=== PATIENT | male | born 1970 | race Caucasian/White ===

== ENCOUNTER 2017-12-07 21:08 | Inpatient (IN) | payer MEDICAID ==
[~2017-12-07] VITALS: Ht 175.3 cm; Wt 86.2 kg
--- NOTE | 2017-12-07 21:15 | NUR ---
BBRA FROM HOME; WEAKNESS, SLURRED SPEECH X 30 MIN. PT AO. RR EVEN AND UNLABORED. NO SOB NOTED. NO NVD AT THIS TIME. PT GOWNED AND PLACED ON MONITOR. WAITING FOR DR. KOENIG. 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
--- NOTE | 2017-12-07 21:19 | NUR ---
DR. ARMSTRONG AND JESSICA SWANN AT BEDSIDE FOR EVAL.
--- NOTE | 2017-12-07 21:21 | NUR ---
CODE STROKE ACTIVATED.
--- NOTE | 2017-12-07 21:24 | NUR ---
PT TO CT.
[2017-12-07] MEDS ORDERED: IOHEXOL-350 100 ML VIAL IV ONE (21:29)
[2017-12-07 21:36] LABS: BASOPHILS % (AUTO) 0.3 % (0.0-2.0); EOSINOPHILS % (AUTO) 1.6 % (0.0-6.0); HEMATOCRIT 45 % (39-51); HEMOGLOBIN 16.4 g/dL (13.5-17.5); LYMPHOCYTES # (AUTO) 3.7 /CMM (0.8-4.8); LYMPHOCYTES % (AUTO) 30.7 % (20.0-44.0); MEAN CORPUSCULAR HGB CONC 37 g/dl (31.0-36.0); MEAN CORPUSCULAR VOLUME 85 fL (80-96); MONOCYTES # (AUTO) 0.8 /CMM (0.1-1.30); MONOCYTES % (AUTO) 6.5 % (2.0-12.0); NEUTROPHILS # (AUTO) 7.3 /CMM (1.8-8.9); NEUTROPHILS % (AUTO) 60.9 % (43.0-81.0); PLATELET COUNT (AUTO) 292 /CMM (150-450); RDW COEFFICIENT OF VARIATION 12.4 (11.5-15.0); RED BLOOD CELL COUNT(AUTO) 5.28 MIL/uL (4.5-6.0)
[2017-12-07 21:38] LABS: CARBON DIOXIDE 23 mmol/L (21-32); CHLORIDE 103 mmol/L (98-107); CREATININE 1.3 mg/dL (0.6-1.3); GLUCOSE 130 mg/dL (74-106); POTASSIUM 3.1 mmol/L (3.5-5.1); SODIUM SERUM 140 mmol/L (136-145); UREA NITROGEN, BLOOD 19 mg/dL (7-18)
--- NOTE | 2017-12-07 21:38 | NUR ---
CALLED TELESTROKE NUMBER AND SPOKE TO MAC. WAS TOLD THAT DR WINCHESTER WOULD CALL BACK.
--- NOTE | 2017-12-07 21:38 | NUR ---
PT RETURNED FROM CT.
--- NOTE | 2017-12-07 21:39 | NUR ---
PT PASSED PO CHALLENGE. JESSICA BURKS MADE AWARE
[2017-12-07] MEDS ORDERED: MECLIZINE HCL 25 MG TABLET ONE (21:40)
--- NOTE | 2017-12-07 21:40 | NUR ---
DR. WALSH SPEAKING TO DR. HERNANDEZ REGARDING POC.
[2017-12-07 21:43] LABS: ALANINE AMINOTRANSFERASE 27 U/L (12-78); ALBUMIN 4.6 g/dL (3.4-5.0); ALKALINE PHOSPHATASE 76 U/L (46-116); ASPARTATE AMINOTRANSFERASE 15 U/L (15-37); BILIRUBIN,DIRECT 0.1 mg/dL (0.0-0.2); TOTAL PROTEIN, SERUM 7.9 g/dL (6.4-8.2)
[2017-12-07 21:45] LABS: TROPONIN I < 0.017 ng/mL (0.00-0.056)
[2017-12-07 21:47] LABS: INR 1.01 (0.85-1.15)
--- NOTE | 2017-12-07 21:49 | NUR ---
DR. WINCHESTER ON TELE STROKE MONITOR SPEAKING TO PT, JESSICA GARCIA AT BEDSIDE. FAMILY AT BEDSIDE
--- NOTE | 2017-12-07 21:50 | NUR ---
DR. ARMSTRONG SPEAKING TO DR. WINCHESTER VIA TELESTROKE MONITOR.
--- NOTE | 2017-12-07 21:55 | NUR ---
PT NOTED WITH SPEECH IMPROVEMENT. PT AMBULATORY. PT AOX3
[2017-12-07] MEDS ORDERED: MECLIZINE HCL 12.5 MG TABLET PO ONE (22:00)
[2017-12-07] MEDS ORDERED: LORAZEPAM INJ 2 MG/ML VIAL ONE (22:08)
[2017-12-07] MEDS ORDERED: ONDANSETRON HCL/PF 4 MG/2 ML VIAL ONE (22:11)
[2017-12-07] MEDS ORDERED: ONDANSETRON HCL/PF 4 MG/2 ML VIAL IV ONE (22:30)
[2017-12-07] MEDS ORDERED: LORAZEPAM INJ 2 MG/ML VIAL IV ONE (22:30)
[2017-12-07 22:40] LABS: CHOLESTEROL 170 mg/dL (<200); HDL CHOLESTEROL 58 mg/dL (40-60); LDL 109 mg/dL (0-99); TRIGLYCERIDES 138 mg/dL (30-150)
--- NOTE | 2017-12-07 23:51 | NUR ---
PT PROVIDED WITH WATER AND PUDDING. OKAY TO GIVE PER VOIP NETWORK TECHNICIAN DEGRASSI
--- NOTE | 2017-12-08 00:29 | NUR ---
FATHER AT BEDSIDE
--- NOTE | 2017-12-08 02:16 | NUR ---
Patient is resting comfortably in bed with eyes closed. Easily aroused. VSS
--- NOTE | 2017-12-08 02:45 | NUR ---
CALLED [facility] TRIP [id number] [place] 8-8:30AM.
[2017-12-08] MEDS ORDERED: ATOR40TA PO (03:12)
[2017-12-08] MEDS ORDERED: HYDR25TA4 PO (03:12)
--- NOTE | 2017-12-08 03:35 | NUR ---
PT ASSIGNED TO 324-1
--- NOTE | 2017-12-08 03:47 | NUR ---
REPORT GIVEN TO CLEMENT GAONA.
[2017-12-08 04:00] VITALS: BP 116/77
--- NOTE | 2017-12-08 04:00 | NUR ---
TELE CRITICAL POWER TECHNICIAN INITIAL NOTES ADMIT PT FROM ER VIA [facility] ACCOMPANIED BY ER NURSE AND HIS FATHER. DX OF CVA. PT AMBULATE ON STEADY GAIT, ONLY FEELING DIZZY. NO SIGN OF ANY SOB. ORIENTED X3, SPEECH CLEAR .RESPIRATION EVEN AND NON-LABORED. SKIN WARM TO TOUCH. PLACED TELE MONITOR SINUS RHYTHM HEART RATE 66 PER MONITOR. ORIENTED WHERE HE AT AND HOW TO USED THE CALL LIGHT SYSTEM. KEPT HIM WARM AND COMFORTABLE AT ALL TIMES. PLACE CALL LIGHT AT REACH. WILL CONTINUE TO MONITOR.
--- NOTE | 2017-12-08 04:08 | NUR ---
PT TRANSFERED PER ACLS PROTOCOL.
[2017-12-08 04:15] VITALS: BP 116/77
[2017-12-08] MEDS ORDERED: ACETAMINOPHEN 325 MG TABLET PO PRN (05:00)
[2017-12-08] MEDS ORDERED: ONDANSETRON HCL/PF 4 MG/2 ML VIAL IV PRN (05:00)
[2017-12-08] MEDS ORDERED: ZOLPIDEM TARTRATE 5 MG TABLET PO PRN (05:00)
[2017-12-08] MEDS ORDERED: LORAZEPAM 1 MG TABLET PO PRN (05:00)
[2017-12-08] MEDS: MECLIZINE HCL 12.5 MG TABLET PO SCH ×2 (05:02→11:45)
--- NOTE | 2017-12-08 05:05 | NUR ---
TELE BUSINESS APPLICATIONS DEVELOPER NOTES MECLIZINE 25MG PO AND ATIVAN 1MG PO GIVEN PER PT REQUESTED BECAUSE HE STARTED FEELING DIZZY AND ANXIETY. KEPT HIM SAFE AT ALL TIMES. FATHER REMAINS AT THE BEDSIDE. TELE SINUS RHYTHM.
[2017-12-08 06:21] LABS: BASOPHILS % (AUTO) 0.4 % (0.0-2.0); EOSINOPHILS % (AUTO) 1.3 % (0.0-6.0); HEMATOCRIT 42 % (39-51); HEMOGLOBIN 14.5 g/dL (13.5-17.5); LYMPHOCYTES # (AUTO) 2.5 /CMM (0.8-4.8); LYMPHOCYTES % (AUTO) 23.6 % (20.0-44.0); MEAN CORPUSCULAR HGB CONC 34 g/dl (31.0-36.0); MEAN CORPUSCULAR VOLUME 87 fL (80-96); MONOCYTES # (AUTO) 0.7 /CMM (0.1-1.30); MONOCYTES % (AUTO) 6.5 % (2.0-12.0); NEUTROPHILS # (AUTO) 7.1 /CMM (1.8-8.9); NEUTROPHILS % (AUTO) 68.2 % (43.0-81.0); PLATELET COUNT (AUTO) 284 /CMM (150-450); RDW COEFFICIENT OF VARIATION 13.2 (11.5-15.0); RED BLOOD CELL COUNT(AUTO) 4.85 MIL/uL (4.5-6.0); WHITE BLOOD COUNT (AUTO) 10.4 K/uL (4.3-11.0)
[2017-12-08 06:28] LABS: INR 1.02 (0.87-1.13)
--- NOTE | 2017-12-08 06:40 | NUR ---
TEXTED SERAFIN CASANOVA FOR MRI APPROVAL.
[2017-12-08 06:45] LABS: THYROID STIMULATING HORMONE 1.85 uIU/mL (0.358-3.74)
[2017-12-08 06:50] LABS: CALCIUM, SERUM 9.1 mg/dL (8.5-10.1); CREATININE 1.1 mg/dL (0.6-1.3); POTASSIUM 3.6 mmol/L (3.5-5.1)
--- NOTE | 2017-12-08 07:40 | NUR ---
TELE FINISH MIXER CLOSING NOTES PT SLEEPING COMFORTABLY IN BED AFTER PRN MEDS GIVEN. NO SIGNS OF ANY ACUTE DISTRESS NOTED. TELE SR PER MONITOR. KEPT HIM SAFE AND WARM AND COMFORTABLE AT ALL TIMES. NPO AT THIS TIME FOR MRI WITH AND WITHOUT CONTRAST. ENDORSE TO AM NURSE FOR CONTINUITY OF CARE,. HIS FATHER STILL AT THE BEDSIDE.
--- NOTE | 2017-12-08 07:45 | NUR ---
RN OPENING NOTES RECEIVED PT. IN BED NPO, A&OX4. PT.'S FATHER IS AT BEDSIDE. BREATHING UNLABORED, AND EVEN ON ROOM AIR. NO S/S OF ACUTE DISTRESS. IV ACCESS ON RIGHT ANTECUBITAL. BED IS IN LOWEST, AND LOCKED POSITION. 2 SIDE RAILS UP. INSTRUCTED PT. TO USE CALL LIGHT FOR ASSISTANCE. ALL NEEDS MET. WILL CONTINUE TO ASSESS AND MONITOR. PT. IS AWAITING MRI OF THE BRAIN WITH AND WITHOUT CONTRAST.
[2017-12-08 08:00] VITALS: BP 126/72
--- NOTE | 2017-12-08 08:05 | NUR ---
TELE MONITORING DISCONTINUED
[2017-12-08] MEDS ORDERED: DEXTROSE 50%-WATER 50 ML DISP.SYRIN IV PRN (09:00)
[2017-12-08] MEDS ORDERED: INSULIN REGULAR, HUMAN 100 UNIT/ML 3 ML VIAL SQ PRN (09:00)
[2017-12-08] MEDS ORDERED: HYDROCHLOROTHIAZIDE 25 MG TABLET PO SCH (09:00)
[2017-12-08] MEDS ORDERED: ASPIRIN EC 325 MG TABLET.DR PO SCH (09:00)
[2017-12-08] MEDS ORDERED: BLOOD SUGAR DIAGNOSTIC 1 EACH STRIP IN SCH (09:00)
--- NOTE | 2017-12-08 10:41 | NUR ---
RN NOTES PT. LEFT ROOM FOR MRI OF THE BRAIN.
--- NOTE | 2017-12-08 11:25 | NUR ---
RN NOTES PT. RETURNED TO ROOM FROM MRI. PT. WAS ENCOURAGED TO DRINK FLUIDS, AND WAS OFFERED JUICE AND CRACKERS.
[2017-12-08 11:42] VITALS: BP 126/72
[2017-12-08] MEDS ORDERED: GADODIAMIDE 2.5 MMOL/5 ML VIAL ONE (12:41)
--- NOTE | 2017-12-08 15:15 | NUR ---
Patient lives locally with family in an apartment that has an elevator access through the garage. He is ambulatory and independent with adl's. Has good family support. No dc planning needs identified at this time. Addendum: 12/08/17 at 2005 by FARHAT BARRAZA RN Amended: Links added.
[2017-12-08 15:56] VITALS: BP 118/75
--- NOTE | 2017-12-08 16:04 | NUR ---
SUPERVISOR VEGETABLE FARMING NOTE DISCHARGED PT. IN MEDICALLY STABLE CONDITION. PT. LEFT WITH HIS BY PRIVATE CAR. DISCHARGE INSTRUCTIONS, AND EDUCATION WAS GIVEN, AND PT. VERBALIZED UNDERSTANDING. PT. SIGNED DISCHARGE PAPERS. BELONGINGS LIST WAS CHECKED AND SIGNED. IV, AND ID BAND WAS REMOVED WITHOUT COMPLICATIONS. EDUCATIONS WAS GIVEN ON VERTIGO AND STROKE PACKET. ALL QUESTIONS WERE ANSWERED. PRESCRIPTION PAPER WAS GIVEN WITH EDUCATION. PT. LEFT WITH DISCHARGE PACKET.
[2017-12-08] MEDS ORDERED: ATORVASTATIN 10 MG TABLET PO SCH (22:00)
== END 2017-12-08 18:49 | disposition home or self-care (01) | DRG 111 ==
LOC: ER 21:10 → TELE 12-08 03:34 → MED 12-08 08:03
PROVIDERS: ADMIT Internal Medicine; ATTEND Internal Medicine
DX: H81.399 Other peripheral vertigo, unspecified ear (principal); I10 Essential (primary) hypertension; R47.1 Dysarthria and anarthria; R73.03 Prediabetes
CPT/HCPCS: 36415; 70450-TC; 70496-TC; 70498-TC; 70553-TC; 71045-TC; 80048-TC; 80061-TC; 80076-TC; 82962-TC; 84443-TC; 84484-TC; 85025-TC; 85730-TC; 87081-TC; 92521; 93307-TC; A4606; J1815; J2060; J2405; J8597; Q9967; Z7610

== ENCOUNTER 2020-09-29 15:56 | Emergency (ER) | payer MEDICAID ==
[~2020-09-29] VITALS: Ht 175.3 cm; Wt 90.7 kg
[~2020-09-29 15:56] MED LIST: HYDR25TA4 PO
--- NOTE | 2020-09-29 16:20 | NUR ---
Patient came in to the er c/o RUQ abd stabbing pain since last night, 10/10 pain scale, s/o liver biopsy monday. On room air, breathing evenly and unlabored. Connected to the monitor and pulse ox. kept comfortable, will continue to monitor accordingly.
[2020-09-29] MEDS ORDERED: ONDANSETRON HCL/PF 4 MG/2 ML VIAL ONE ×2 (16:36→21:19)
[2020-09-29] MEDS ORDERED: MORPHINE SULFATE INJ 4 MG/ML DISP.SYRIN ONE ×2 (16:36→21:19)
[2020-09-29 16:57] LABS: BASOPHILS % (AUTO) 0.4 % (0.0-2.0); EOSINOPHILS % (AUTO) 0.7 % (0.0-6.0); HEMATOCRIT 50 % (39-51); LYMPHOCYTES # (AUTO) 3.1 /CMM (0.8-4.8); LYMPHOCYTES % (AUTO) 29.7 % (20.0-44.0); MEAN CORPUSCULAR HGB CONC 34 g/dl (31.0-36.0); MEAN CORPUSCULAR VOLUME 90 fL (80-96); MONOCYTES # (AUTO) 0.8 /CMM (0.1-1.30); MONOCYTES % (AUTO) 7.8 % (2.0-12.0); NEUTROPHILS # (AUTO) 6.4 /CMM (1.8-8.9); NEUTROPHILS % (AUTO) 61.4 % (43.0-81.0); PLATELET COUNT (AUTO) 289 /CMM (150-450); RED BLOOD CELL COUNT(AUTO) 5.54 MIL/uL (4.5-6.0); WHITE BLOOD COUNT (AUTO) 10.5 K/uL (4.3-11.0)
[2020-09-29] MEDS ORDERED: ONDANSETRON HCL/PF 4 MG/2 ML VIAL IVP ONE ×2 (17:00→21:30)
[2020-09-29] MEDS ORDERED: MORPHINE SULFATE INJ 2 MG/ML DISP.SYRIN IV ONE ×2 (17:00→21:30)
[2020-09-29] MEDS ORDERED: IV NS 0.9% 250 ML IV ONE (17:02)
[2020-09-29] MEDS ORDERED: IOHEXOL-300 100 ML VIAL IV ONE (17:02)
[2020-09-29 17:07] LABS: CALCIUM, SERUM 9.8 mg/dL (8.5-10.1); CREATININE 1.1 mg/dL (0.6-1.3); POTASSIUM 3.7 mmol/L (3.5-5.1)
[2020-09-29 17:12] LABS: BILIRUBIN,TOTAL 1.6 mg/dL (0.2-1.0)
[2020-09-29 17:13] LABS: ALBUMIN 4.4 g/dL (3.4-5.0); BILIRUBIN,DIRECT 0.2 mg/dL (0.0-0.2); TOTAL PROTEIN, SERUM 7.9 g/dL (6.4-8.2)
--- NOTE | 2020-09-29 17:20 | NUR ---
Pain has improved, now a 6/[address] Awad made aware.
[2020-09-29] MEDS ORDERED: HYDROMORPHONE 1 MG/1 ML DISP.SYRIN ONE (17:23)
[2020-09-29] MEDS ORDERED: HYDROMORPHONE 1 MG/1 ML DISP.SYRIN IV ONE (17:30)
--- NOTE | 2020-09-29 17:30 | NUR ---
PATIENT TAKEN TO CT.
--- NOTE | 2020-09-29 17:41 | NUR ---
PATIENT CAME BACK FROM CT. TOLERATED PROCEDURE.
[2020-09-29] MEDS ORDERED: PANT40TA49 PO (19:03)
[2020-09-29] MEDS ORDERED: FERR325T24 PO (19:03)
[2020-09-29] MEDS ORDERED: ATOR10TA PO (19:03)
[2020-09-29] MEDS ORDERED: MESA800T9 PO (19:03)
[2020-09-29] MEDS ORDERED: CHOL100062 PO (19:03)
[2020-09-29] MEDS ORDERED: CYAN1TAB17 PO (19:03)
[2020-09-29] MEDS ORDERED: VIT1CAPS44 PO (19:03)
[2020-09-29] MEDS ORDERED: LISI20TA30 PO (19:03)
[2020-09-29] MEDS ORDERED: PHYT100T PO (19:04)
--- NOTE | 2020-09-29 19:05 | NUR ---
REC'D REPORT FROM ZABRINA
--- NOTE | 2020-09-29 19:15 | NUR ---
XRAY AT BEDSIDE
--- NOTE | 2020-09-29 19:15 | NUR ---
ENDORSED TO [facility] FOR DELIO.
--- NOTE | 2020-09-29 19:30 | NUR ---
DR KESSLER SPEAKING WITH DR MANCIA
--- NOTE | 2020-09-29 19:55 | NUR ---
GAVE MOVESHEET TO ADMITTING FOR REGAL AUTH
--- NOTE | 2020-09-29 20:25 | NUR ---
SPOKE TO CHER RIVERA. PT IS CAPITATED TO [facility].
--- NOTE | 2020-09-29 20:25 | NUR ---
COVID SWAB SENT
[2020-09-29] MEDS ORDERED: IV NS 0.9% 1,000 ML BAG IV ONE (20:30)
--- NOTE | 2020-09-29 20:32 | NUR ---
DR. MANCIA SPEAKING WITH VIRGIE CHISHOLM MD
--- NOTE | 2020-09-29 20:32 | NUR ---
VERBAL ORDER FOR 1L NS NOTED AND CARRIED OUT
--- NOTE | 2020-09-30 00:09 | NUR ---
PT ACCEPTED AT [facility] ACCEPTING BALA BARNES PT WILL GO TO ROOM 309-A PHONE # FOR REPORT [facility] ETA 45 MIN.
--- NOTE | 2020-09-30 00:19 | NUR ---
AMBULANCE ETA 45MIN
--- NOTE | 2020-09-30 00:19 | NUR ---
GAVE REPORT TO CRISPIN STYLES AT [facility]
[2020-09-30] MEDS ORDERED: MORPHINE SULFATE INJ 4 MG/ML DISP.SYRIN ONE (01:04)
--- NOTE | 2020-09-30 01:05 | NUR ---
GAVE REPORT TO EMS AND TRANSFER DOCS
--- NOTE | 2020-09-30 01:05 | NUR ---
MD VERBAL ORDER FOR 4MG MORPHINE. NOTED AND CARRIED OUT
[2020-09-30 01:11] VITALS: BP 105/87
[2020-09-30] MEDS ORDERED: MORPHINE SULFATE INJ 2 MG/ML DISP.SYRIN IV ONE (01:30)
== END 2020-09-30 01:11 | disposition short-term general hospital (02) ==
LOC: ER 16:02
DX: K56.1 Intussusception (principal); R10.11 Right upper quadrant pain; Z20.822 Contact with and (suspected) exposure to COVID-19; R16.2 Hepatomegaly with splenomegaly, not elsewhere classified; N28.1 Cyst of kidney, acquired; J98.11 Atelectasis; Z79.899 Other long term (current) drug therapy; I10 Essential (primary) hypertension; Z91.018 Allergy to other foods; R94.31 Abnormal electrocardiogram [ECG] [EKG]
CPT/HCPCS: 36415; 71045; 74177; 80048; 80076; 83690; 84484; 85025; 85730; 87426; 93005; 96361; 96374; 96375; 96376 ×2; 99291; C9803; J1170; J2270 ×3; J2405 ×2; J7030; J7050; Q9967